=== PATIENT | female | born 1960 | race Caucasian/White ===

== ENCOUNTER 2024-08-04 22:11 | Inpatient (IN) | payer OTHER, SELFPAY ==
[2024-08-04 17:43] VITALS: BP 105/73
--- NOTE | 2024-08-04 17:43 | ED.GENMED ---
ED Provider Triage
<Val Bloom INSURANCE CLAIMS ASSISTANT - Last Filed: 08/04/24 17:51>
-
Patient seen by provider in Triage?: Seen in Triage
Attestation: A medical screening examination has been initiated by a qualified medical provider. Based on the assessment performed at this time, it has been determined that an emergent medical condition may exist and the patient has been informed
that further medical evaluation and possible additional diagnostic testing may be needed.
HPI: 64 yo female mid chest pain radiating under left breast to upper back and L shoulder at time. Intermittent until last night when it became constant and remains so. Pain now 8/10, stabbing, 'takes my breath away.' Has taken nothing for the pain.
Was nauseous and vomited once on way here. Denies SOB, abdominal pain. Denies diarrhea.
GENERAL: Alert , in no apparent distress
EYE: No visual abnormalities.
ENT: No visible abnormalities.
LUNGS: No acute respiratory distress
NEUROLOGICAL: Alert and oriented
SKIN: Skin intact. No visible changes.
MUSCULOSKELETAL: Moving extremities normally
PSYCH: Normal and appropriate interaction.
This is a medical evaluation conducted in person to initiate diagnostic evaluation and provide initial therapeutics. Please see further documentation by the treating clinician.
History of Present Illness
<Val Bloom INSURANCE CLAIMS ASSISTANT - Last Filed: 08/04/24 17:51>
General
Chief Complaint: Chest Pain
Time Seen by Provider: 08/04/24 18:37
<JORDYN Upton - Last Filed: 08/04/24 21:07>
General
Source: patient
Exam Limitations: none
History of Present Illness
History of Present Illness:
This is a 64 year old female that comes in with c/o chest pain. States that she had a fever last night and she just feels weak. State that about 1.5 weeks ago she had a little discomfort. Then last night it was worse. States that she had chills,
chest pain, some left flank pain, nausea, vomiting, headache. Denies any SOB, cough, diarrhea, dizziness, urinary burning .
Past History
<Val Bloom NP - Last Filed: 08/04/24 17:51>
Past History
ED Past Medical History: Other (Kidney stones, migraines)
ED Past Surgical History: None
Social History
Tobacco: Former smoker
Alcohol: Occasional
Family History
Family History: Negative Diabetes, Hypertension, Early CAD, Asthma or Cancer
<JORDYN Upton - Last Filed: 08/04/24 21:07>
Past History
ED Past Medical History: Other (Kidney stones, migraines, Tingling legs and arms. Pancreatitis); Negative Asthma, HTN, Hypercholesterolemia or NIDDM
ED Past Surgical History: (X 3, ), Gynecological (Hysterectomy) and Orthopedic (Cervical fusion)
Social History
Tobacco: Former smoker
Alcohol: None
Personal:
Living: with family
Review of Systems
<JORDYN Upton - Last Filed: 08/04/24 21:07>
Review of Systems
All Other Systems: ROS reviewed and negative except as documented in HPI and ROS
Constitutional: Reports fever and chills
EENT: Reports no symptoms
Respiratory: Denies cough or trouble breathing
Cardiac: Reports chest pain
ABD/GI: Reports abdominal pain, nausea and vomiting; Denies diarrhea
: Reports no symptoms; Denies dysuria, frequency or urgency
Musculoskeletal: Reports no symptoms
Skin: Reports no symptoms
Neurological: Reports headache; Denies dizzy
Psychiatric: Reports no symptoms
Phy Exam
<JORDYN Upton - Last Filed: 08/04/24 21:07>
General Physical Exam
General Presentation: mild distress
General age: appears stated age
General Skin: warm and dry
General Habitus: normal
General Mental: alert
General Hydration: appears well hydrated
ENT Exam
ENT Exam: TM's normal, pharynx normal and neck supple
Eye Exam
Eye Exam: EOMI
Cardiovascular Exam
Cardiovascular Exam: regular rate/rhythm, no edema, no murmur and normal peripheral pulses
Pulmonary Exam
Pulmonary Exam: lungs clear, no respiratory distress, no rales, chest non tender, no crackles, no rhonchi, no wheezing and no cough
Gastrointestinal Exam
Gastrointestinal Exam: normal bowel sounds, soft, no organomegaly, no pulsatile mass, non distended and tender (Upper abd tenderness with palpation)
Musculoskeletal Exam
Musculoskeletal Exam: full ROM and no edema
Skin Exam
Skin Exam: normal color, warm/dry, no rash and no petechia
Psychiatric Exam
Psychiatric Exam: normal mood/affect
Scores
<JORDYN Upton - Last Filed: 08/04/24 21:07>
Heart Score for Chest Pain Patients
STEMI patient?: No
History: Slightly or Non-Suspicious
ECG: Normal
Age: >45 - <65 years
Risk Factors: No Risk Factors
Troponin: </= Normal Limit
Heart Score for Chest Pain Patients: 1
Heart Score Risk: 2.5% MACE over next 6 weeks
Course
<Val Bloom NP - Last Filed: 08/04/24 17:51>
Orders/Labs/Results
Orders:
Orders
08/04/24 17:35
Electrocardiogram (*1) Urgent
Reason for Study: Chest Pain
EKG- Treatment ONCE
08/04/24 17:47
Electrocardiogram (*1) Urgent
Reason for Study: Chest Pain
EKG- Treatment ONCE
08/04/24 17:50
CT Abd/Pel (IV only)-DH only Urgent
Comment:
Reason For Exam: mid epigastric pain LUQ/L upper back hx pancreatit
08/04/24 17:53
Complete Blood Count/With Diff Urgent
Comprehensive Metabolic Panel Urgent
Lipase Urgent
Troponin I Urgent
08/04/24 19:08
Pantoprazole [Protonix IV] 40 mg IV NOW STA
08/04/24 19:09
CR Chest - 2 Views Urgent
Comment:
Reason For Exam: Chest pain
08/04/24 19:11
Ketorolac [Toradol] 30 mg IV NOW STA
US Abdomen Complete/Upper Urgent
Reason For Exam: Upper abd pain
08/04/24 19:17
0.9% Sodium Chloride 1000 ml [Nss] 1,000 ml IV BOLUS
08/04/24 20:40
D-Dimer Urgent
08/04/24 20:43
Urinalysis Reflex To Culture Urgent
Date Specimen was Collected: 08/04/24
Time Specimen was Collected: 20:41
Urine Microscopic Reflex Cult Urgent
Urine Culture Urgent
KATIE Source: U
Specimen Description:
Date Specimen was Collected: 08/04/24
Time Specimen was Collected: 20:41
Abnormal Lab Results
08/04/24 08/04/24 08/04/24
17:53 20:40 20:43
Absolute Neuts (auto) 7.0 H 10^3/uL
(1.4-6.5)
Absolute Monos (auto) 0.8 H 10^3/uL
(0.1-0.6)
D-Dimer 0.52 H ug/mlFEU
(0.00-0.50)
Glucose 173 H mg/dl
(70-99)
Urine Ketones 2+ A
(Negative)
Leukocyte Esterase Rfl 1+ A
(Negative)
08/04/24 17:53
08/04/24 17:53
Vital Signs
Initial and Last Documented VS:
Initial Vital Signs
Temp Pulse Resp BP Pulse Ox
99.8 F 115 16 105/73 95
08/04/24 17:43 08/04/24 17:43 08/04/24 17:43 08/04/24 17:43 08/04/24 17:43
Last Documented Vital Signs
Temp Pulse Resp BP Pulse Ox
99.8 F 87 17 113/65 99
08/04/24 17:43 08/04/24 20:30 08/04/24 20:25 08/04/24 20:25 08/04/24 20:30
<JORDYN Upton - Last Filed: 08/04/24 21:07>
Orders/Labs/Results
Orders:
Orders
08/04/24 17:35
Electrocardiogram (*1) Urgent
Reason for Study: Chest Pain
EKG- Treatment ONCE
08/04/24 17:47
Electrocardiogram (*1) Urgent
Reason for Study: Chest Pain
EKG- Treatment ONCE
08/04/24 17:50
CT Abd/Pel (IV only)-[facility] only Urgent
Comment:
Reason For Exam: mid epigastric pain LUQ/L upper back hx pancreatit
08/04/24 17:53
Complete Blood Count/With Diff Urgent
Comprehensive Metabolic Panel Urgent
Lipase Urgent
Troponin I Urgent
08/04/24 19:08
Pantoprazole [Protonix IV] 40 mg IV NOW STA
08/04/24 19:09
CR Chest - 2 Views Urgent
Comment:
Reason For Exam: Chest pain
08/04/24 19:11
Ketorolac [Toradol] 30 mg IV NOW STA
US Abdomen Complete/Upper Urgent
Reason For Exam: Upper abd pain
08/04/24 19:17
0.9% Sodium Chloride 1000 ml [Nss] 1,000 ml IV BOLUS
08/04/24 20:40
D-Dimer Urgent
08/04/24 20:43
Urinalysis Reflex To Culture Urgent
Date Specimen was Collected: 08/04/24
Time Specimen was Collected: 20:41
Urine Microscopic Reflex Cult Urgent
Urine Culture Urgent
KATIE Source: U
Specimen Description:
Date Specimen was Collected: 08/04/24
Time Specimen was Collected: 20:41
Abnormal Lab Results
08/04/24 08/04/24 08/04/24
17:53 20:40 20:43
Absolute Neuts (auto) 7.0 H 10^3/uL
(1.4-6.5)
Absolute Monos (auto) 0.8 H 10^3/uL
(0.1-0.6)
D-Dimer 0.52 H ug/mlFEU
(0.00-0.50)
Glucose 173 H mg/dl
(70-99)
Urine Ketones 2+ A
(Negative)
Leukocyte Esterase Rfl 1+ A
(Negative)
08/04/24 17:53
08/04/24 17:53
Hyperglycemia,, Troponin <0.012, Lipase normal at 93, D-dimer 0.52( Will adjust for age, as patient is not tachycardic or hypoxic)
Vital Signs
Initial and Last Documented VS:
Initial Vital Signs
Temp Pulse Resp BP Pulse Ox
99.8 F 115 16 105/73 95
08/04/24 17:43 08/04/24 17:43 08/04/24 17:43 08/04/24 17:43 08/04/24 17:43
Last Documented Vital Signs
Temp Pulse Resp BP Pulse Ox
99.8 F 87 17 113/65 99
08/04/24 17:43 08/04/24 20:30 08/04/24 20:25 08/04/24 20:25 08/04/24 20:30
<JORDYN Upton - Last Filed: 08/04/24 21:07>
MDM/Problems Addressed
Differential Diagnosis Includes:
Costochondritis, PNA, Gallbladder disease, Gastritis
MDM/Problems Addressed:
This is a 64 year old female that come sin with c/o chest pain. States that she had a little about 1.5 weeks ago and then last night the chest pain was terrible. States that she feels she had a fever with chills, abd pain, nausea, vomiting.
Will check labs, US upper abd, CT scan and given IV fluids with pain medication.
Back into see patient. Reviewed labs and US and CT findings. Patient remains very uncomfortable. Will admit. Hospitalist notified
Chronic conditions affecting care:
NA
Acute Exacerbation and/or Progression of Chronic Illness:
NA
<JORDYN Upton - Last Filed: 08/04/24 21:07>
*Radiology
Radiology exam reviewed: preliminary read by ED provider (Chest-Negative for active disease), radiology read reviewed (US limited-Slightly contracted gallbladder. No gallstones. No bile duct dilation. Poorly visualized pancreas. left renal cyst.
CT-mild pancreatitis of the pancreatic tail. Incidental findings include left paramidline lower back probable subaceous cyst, having increased slightly in size. Small ) and other (CT cont- small hepatic cyst and left renal cyst. Minor diverticulosis
without acute diverticulitis. )
*Pulse Oximetry
Patient hypoxic: no
*EKG
Interpreted by ED Provider?: Yes
Heart Rate: 107
Rate: tachycardiac
Rhythm: sinus tachycardia
[place]: normal axis
Interval: normal interval
QRS Pattern: normal QRS
Ischemia: no ischemia
*Dish Technician Interpretation
Rate: normal
Heart Rate: 91
Rhythm: sinus
*Critical Care Note
Total Time (30-74mins, 75-104mins- exclusive of procedures): Not Applicable
ED Attending Note
<Val Bloom NP - Last Filed: 08/04/24 17:51>
-
Portions of this chart may have been created with voice recognition software.� Occasional wrong word or��sound alike� substitutions may have occurred due to the inherent limitations of voice recognition software.
Discharge Plan
Departure
Patient Disposition: Admit
Date of Disposition: 08/04/24
Time of Disposition: 21:05
Admit to: Med/Surg
Presentation/result/management discussed w/ accepting MD/DO: Hospitalist
Patient with high blood pressure during this ER visit?: No
Condition: Good
Covid-19: Not Applicable
Discharge Problem:
Abdominal pain, Pancreatitis, acute
Prescriptions:
No Action
hngrjejnjb-jwfglqkpvherh-dpjy 1 TAB tablet
1 tab PO Q4HPRN PRN (Reason: pain)
trazodone 100 MG tablet
100 mg PO HS
gabapentin 300 MG capsule
300 mg PO TID
zolpidem 5 MG tablet
6 mg PO HSPRN PRN (Reason: sleep)
amoxicillin-pot clavulanate 875-125 mg tablet
1 tab PO BID Qty: 20 0RF
oxycodone 5 mg tablet
5 mg PO Q4H PRN (Reason: pain) Qty: 10 0RF
gabapentin 300 mg capsule
300 mg PO TID Qty: 20 0RF
Referrals:
Ayana Dwyer CRNP [Family Provider] -
Interventions
Interventions:
*Risk Screen - Suicide Last Done: 08/04/24 17:45
*General Assessment Last Done: 08/04/24 19:03
*Neglect/Abuse Screening Last Done: 08/04/24 17:45
*ED COVID-19 Vaccine History Last Done: 08/04/24 19:03
ED- Cardiac Assessment Last Done: 08/04/24 19:03
Discharge Date and Time
Print Language: AZERI
[2024-08-04 18:00] LABS: % Basophils 0.3 % (0-2); % Eosinophils 1.2 % (0-6); % Immature Granulocytes 0.3 % (0-0.5); % Lymphocytes 22.8 % (20.5-51.1); % Neutrophils 67.4 % (42.2-75.2); Absolute Eosinophils 0.1 10^3/uL (0-0.7); Absolute Lymphocytes 2.4 10^3/uL (1.2-3.4); Absolute Monocytes 0.8 10^3/uL (0.1-0.6); Hematocrit 39.6 % (37.0-47.0); Hemoglobin 13.3 g/dL (12.0-16.0); Mean Corp Hgb Conc. 33.6 g/dL (33.0-37.0); Mean Corpuscular Hgb 29.7 pg (27.0-31.0); Mean Corpuscular Volume 88.4 fL (81.0-99.0); Mean Platelet Volume 7.9 fL (7.4-10.4); Nucleated Red Blood Cells % 0 %; Platelet Count 280 10^3/uL (130-400); Red Blood Cell Count 4.48 10^6/uL (4.20-5.40); Red Cell Dist. Width 12.6 % (11.5-14.5); White Blood Cell Count 10.3 10^3/uL (4.8-10.8)
[2024-08-04 18:12] LABS: ALT (SGPT) 14 U/L (0-35); AST (SGOT) 19 U/L (14-36); Albumin 4.4 g/dl (3.5-5.0); Alkaline Phosphatase 66 U/L (38-126); Blood Urea Nitrogen 15 mg/dl (7-17); Calcium 9.3 mg/dl (8.4-10.2); Carbon Dioxide 23 mmol/L (22-30); Chloride 104 mmol/L (98-107); Glucose 173 mg/dl (70-99); Lipase 93 U/L (23-300); Potassium 3.5 mmol/L (3.5-5.1); Sodium 138 mmol/L (135-145); Total Bilirubin 1.2 mg/dl (0.2-1.3); Total Protein 6.9 g/dl (6.3-8.2); eGFR > 60.00
[2024-08-04 18:23] LABS: Troponin I < 0.012 ng/ml
[2024-08-04 18:51] VITALS: BP 135/71
[2024-08-04 19:00] VITALS: BP 113/69
[2024-08-04] MEDS: PROTONIX IV 40 MG IV (20:22)
[2024-08-04] MEDS: NSS 1000 IV (20:22)
[2024-08-04] MEDS: TORADOL 30 MG IV (20:22)
[2024-08-04 20:25] VITALS: BP 113/65
[2024-08-04 20:52] LABS: Urine Albumin Trace (Neg - Trace); Urine Bilirubin Negative (Negative); Urine Character Clear (Clear); Urine Color Amber; Urine Glucose Negative (Negative); Urine Ketone 2+ (Negative); Urine Leukocyte 1+ (Negative); Urine Nitrite Negative (Negative); Urine Occult Blood Negative (Negative); Urine Specific Gravity 1.005 (<1.030); Urine Urobilinogen 1+ (Neg - 1+); Urine pH 6.5 (5.0-9.0)
[2024-08-04 20:57] LABS: D-Dimer 0.52 ug/mlFEU (0.00-0.50)
[2024-08-04 21:00] VITALS: BP 117/62
[2024-08-04 21:12] LABS: Urine Bacteria Few (Negative); Urine Red Blood Cell 0-2 /HPF (0-2); Urine Squamous Cell >30 /LPF (Few); Urine White Cell 16-20 /HPF (0-5)
[2024-08-04] MEDS: DILAUDID 1 MG IV (21:41)
--- NOTE | 2024-08-04 21:51 | HPS.HSE ---
Family Physician
-
Family Physician: Ayana Dwyer
Chief Complaint
-
mid chest pain radiating under left breast to upper back and L shoulde
History of Present Illness
HPI
64F on Semaglutide ( Wegovy) HX Kidney stones seen at ER:
- acute intermittent mid chest pain radiating under left breast to upper back and L shoulder at time.
- Intermittent until last night then it became constant and remains so.
- Pain now 8/, stabbing, 'takes my breath away.'
- Was nauseous and vomited once on way here.
- on Wegovy for last 2.5 yrs
- HX Pancreatitis 6 yrs ago
ROS
Denies SOB, abdominal pain. Denies diarrhea.
Medical History
Past Medical History
Past Medical History: Reports Other (kidney stone )
Additional Past Medical History:
HX pancreatitis 6 yrs ago
Past Surgical History: Reports None
Social History
Tobacco: Former Smoker
Alcohol: Occasional
Family History
Family History: Not pertinent
Allergies / Home Medications
Allergies reflects when Allergies were last updated in [employer].
Home Medications with original date entered in [employer]
Allergy/Medication List:
Allergies
Allergy/AdvReac Type Severity Reaction Status Date / Time
No Known Allergies Allergy Verified 06/26/22 18:43
Home Medications
trazodone 100 mg tablet 200 mg PO HS 10/10/12
Medical Marijuana 1 gummy PO HS 08/04/24
ondansetron 4 mg disintegrating tablet 4 mg PO Q8HPRN PRN nausea 08/04/24
polyethylene glycol 3350 17 gram oral powder packet (Miralax) 17 g PO DAILYPRN PRN constipation 08/04/24
rosuvastatin 10 mg tablet 10 mg PO DAILY 08/04/24
semaglutide (weight loss) 2.4 mg/0.75 mL subcutaneous pen injector (Wegovy) 2.4 mg SC MO 08/04/24
Review of Systems
-
Constitutional: Reports No Symptoms
EENT: Reports No Symptoms
Respiratory: Reports No Symptoms
Cardiac: Reports No Symptoms
Abdomen/GI: Reports See HPI, Abdominal Pain and Nausea
: Reports No Symptoms
Musculoskeletal: Reports No Symptoms
Skin: Reports No Symptoms
Neurological: Reports No Symptoms
Endocrine: Reports No Symptoms
Hematologic/Lymphatic: Reports No Symptoms
Psych: Reports No Symptoms
Physical Exam
Vital Signs
Vital Signs
Temp Pulse Resp BP Pulse Ox
99.8 F 85 16 117/62 96
08/04/24 17:43 08/04/24 21:30 08/04/24 21:15 08/04/24 21:00 08/04/24 21:30
Physical Exam
General: Well Developed, Well Nourished and No Apparent Distress
HEENT: NormoCephalic, Moist mucous membranes and Atraumatic
Respiratory: Clear
Cardiac: S1/S2 and Regular Rhythm; No Murmur or Rub
Rectal: Deferred by Provider
Musculoskeletal: No Clubbing, No Cyanosis and No Edema
Skin: No Rash
Neuro: Awake, Alert, AO x 3 and Nonfocal/grossly intact
Laboratory Results
-
08/04/24 17:53
08/04/24 17:53
Laboratory Results
Total Bilirubin 1.2 mg/dl (0.2-1.3) 08/04/24 17:53
AST 19 U/L (14-36) 08/04/24 17:53
ALT 14 U/L (0-35) 08/04/24 17:53
Alkaline Phosphatase 66 U/L (38-126) 08/04/24 17:53
Troponin I < 0.012 ng/ml 08/04/24 17:53
Lipase 93 U/L (23-300) 08/04/24 17:53
Data Reviewed
-
CT Scan: Report Reviewed by me
Lab Data: Labs Reviewed by me
Impression/Plan
-
Data
Unremarkable CBC
DD 0.52
Lipase 93 , Nl LFTs
NEG TPNI
CXR: no acute process
EKG
SINUS TACHYCARDIA
NONSPECIFIC T WAVE ABNORMALITY
ABNORMAL ECG
NO PREVIOUS ECGS AVAILABLE
US abdomen
Slightly contracted gallbladder. No gallstones. No bile duct dilatation. Poorly visualized pancreas. Left renal cyst.
CT AP with IV contrast
Mild pancreatitis of the pancreatic tail.
Mild soft tissue stranding is associated with the pancreatic tail, consistent with acute pancreatitis.
No prior hospitalist admission:
ASSESSMENT & PLAN
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
Nl Lipase, nl LFTs
Unremarkable US ; No GS. No CBD dilatation
On Wegovy for last 2.5 yrs
HX Pancreatitis 6 yrs ago
Denied ETOH use disorder
- stop Wegovy
- NPO
- LR IVF @ 120/H
- IV Dilaudid PRN
- IV anti emetics PRN
- GI consult
Elevated D Dimer unclear clinical significance: any association with acute pancreatitis ?
HLD
- cont PRESENTATION DESIGNER Statin
Kidney stones
DVT Px: LMWH
Full code
IP MS
[2024-08-04 22:00] VITALS: BP 100/55
[2024-08-05] MEDS: DILAUDID 0.5 MG IV ×4 (00:19→22:22)
[2024-08-05] MEDS: DESYREL 200 MG PO ×2 (01:16→22:21)
[2024-08-05] MEDS: LR 1000 IV (01:17)
[2024-08-05] MEDS: ZOFRAN 4 MG IV (04:17)
[2024-08-05 04:22] VITALS: BP 124/57
[2024-08-05 04:58] LABS: Hematocrit 36.4 % (37.0-47.0); Hemoglobin 11.9 g/dL (12.0-16.0); Mean Corp Hgb Conc. 32.7 g/dL (33.0-37.0); Mean Corpuscular Hgb 29.6 pg (27.0-31.0); Mean Corpuscular Volume 90.5 fL (81.0-99.0); Mean Platelet Volume 8.7 fL (7.4-10.4); Platelet Count 272 10^3/uL (130-400); Red Blood Cell Count 4.02 10^6/uL (4.20-5.40); Red Cell Dist. Width 12.7 % (11.5-14.5); White Blood Cell Count 11.5 10^3/uL (4.8-10.8)
[2024-08-05 05:00] VITALS: BP 89/43
[2024-08-05 05:25] LABS: Blood Urea Nitrogen 17 mg/dl (7-17); Calcium 8.7 mg/dl (8.4-10.2); Carbon Dioxide 23 mmol/L (22-30); Chloride 106 mmol/L (98-107); Glucose 77 mg/dl (70-99); Magnesium 1.9 mg/dl (1.6-2.3); Sodium 142 mmol/L (135-145); eGFR > 60.00
[2024-08-05 06:00] VITALS: BP 103/63
--- NOTE | 2024-08-05 06:58 | CON.GI ---
Addendum entered and electronically signed by Jason Andres MD 08/05/24 10:00:
I saw and examined the patient.
The CAD CAM PROGRAMMER or PA's note was reviewed and I agree with the note.
Comment: 64yo female presents with abd pain, n/v. Pain is located in upper epigastric area/chest. CT abd shows mild inflammatory stranding in pancreatic tail. LFTs, lipase normal. She had attack of pancreatitis at [facility] 6 yrs ago, unclear
etiology. She quit smoking after that. No further attacks until now with similar symptoms. Denies EtOH. US negative for gallstones. She has been on Wegovy for last 2 years, but was not on it at time of last attack. Denies FH pancreatitis or
pancreatic CA
REC:
Mild stranding seen on CT
IVF, ok for clears
If improves, get MRI/MRCP as outpt for f/u
If no improvement, check MRI/MRCP as inpt
Original Note:
Consultation
-
Date/Time Consultation Requested: 08/05/24 0030
Date/Time Consultation Performed: 08/05/24 0910
Requesting Provider: Mayi Stokes PA-C
Performing Provider: JORDYN Marquis, Jason Andres MD
Reason for Consultation: pancreatitis
Medical History
Chief Complaint / HPI
Chief Complaint: chest pain
History of Present Illness:
Pt is a 64yo with hx prior pancreatitis, wt loss with use of Wegovy last 2 1/2 years, renal stones , prior appe, GERTRUDE, lap for endometriosis,cervical fusion, chronic back pain with onset of chest pain with radiation to back and shoulder with nausea
and vomiting. On admission she is noted with WBC 11,500 with glucose 173 and normal LFT's and lipase and normal troponin Pt did complete US with slightly contract GB no stone or duct dilatation. Limited pancreas. CT with IV contrast with mild
pancreatitis in pancreatic tail. Also noted sebaceous cysts, hepatic, and renal cysts along with diverticulosis. In recall with patient hx pancreatitis 6 years ago. She denies ETOH use and did not recall gallbladder issues with prior episode. She
was on increased NSAID's and tobacco use which she stopped after that admission with treatment at [place]. She admits to some constipation but otherwise denies dysphagia, GERD, diarrhea, rectal bleeding or change in stool/urine color. She denies
any recent change in Wegovy dosing.
Past Medical History
Past Medical History: Other (kidney stones, pancreaitits 6 years ago, migraines)
Past Surgical History: Appendectomy, Gynecological (GERTRUDE, lap for endometriosis) and Orthopedic (cervica fusion)
Social History
Tobacco: Former Smoker
Alcohol: None
Drug: Marijuana
Personal:
Living: With Family
Employment: Retired
Family History
Family History: Other (no family hx colon Ca or polyps, pancreatitis or pancreatic CA)
Allergies / Home Medications
Allergy/AdvReac Type Severity Reaction Status Date / Time
No Known Allergies Allergy Verified 06/26/22 18:43
�Medication �Instructions �Recorded
trazodone 100 mg tablet 200 mg PO HS 10/10/12
Medical Marijuana 1 gummy PO HS 08/04/24
ondansetron 4 mg disintegrating 4 mg PO Q8HPRN PRN nausea 08/04/24
tablet
polyethylene glycol 3350 17 gram 17 g PO DAILYPRN PRN constipation 08/04/24
oral powder packet (Miralax)
rosuvastatin 10 mg tablet 10 mg PO DAILY 08/04/24
semaglutide (weight loss) 2.4 2.4 mg SC MO 08/04/24
mg/0.75 mL subcutaneous pen
injector (Wegovy)
Review of Systems
-
History Source: Patient
Constitutional: Reports Weight Loss (42 lbs in last 2 1/2 years )
EENT: Reports No Symptoms
Respiratory: Reports No Symptoms
Cardiac: Reports Chest Pain
Abdomen/GI: Reports Nausea
: Reports No Symptoms
Musculoskeletal: Reports Other (chronic back pain)
Skin: Reports No Symptoms
Neurological: Reports No Symptoms
Endocrine: Reports No Symptoms
Hematologic/Lymphatic: Reports No Symptoms
Vital Signs
Temp Pulse Resp BP Pulse Ox
99.8 F 90 17 100/55 92
08/04/24 17:43 08/04/24 22:00 08/04/24 22:00 08/04/24 22:00 08/04/24 21:45
Physical Exam
Exam
General: Well Developed, Well Nourished and No Apparent Distress
HEENT: Normocephalic and Anicteric
Respiratory: Clear
Cardiac: Regular Rhythm
GI: Soft, Non Distended and Tender (minimal epigastric points more to chest )
Musculoskeletal: No Clubbing and No Cyanosis
Skin: Warm and Dry
Neuro: Awake, Alert and AO x 3
Psych: Calm
Results
WBC 11.5 10^3/uL (4.8-10.8) H 08/05/24 04:22
Hgb 11.9 g/dL (12.0-16.0) L 08/05/24 04:22
Hct 36.4 % (37.0-47.0) L 08/05/24 04:22
MCV 90.5 fL (81.0-99.0) 08/05/24 04:22
Plt Count 272 10^3/uL (130-400) 08/05/24 04:22
Absolute Neuts (auto) 7.0 10^3/uL (1.4-6.5) H 08/04/24 17:53
Sodium 142 mmol/L (135-145) 08/05/24 04:22
Potassium 4.0 mmol/L (3.5-5.1) 08/05/24 04:22
Chloride 106 mmol/L (98-107) 08/05/24 04:22
Carbon Dioxide 23 mmol/L (22-30) 08/05/24 04:22
BUN 17 mg/dl (7-17) 08/05/24 04:22
Creatinine 0.6 mg/dL (0.6-1.0) 08/05/24 04:22
Calcium 8.7 mg/dl (8.4-10.2) 08/05/24 04:22
Total Bilirubin 1.2 mg/dl (0.2-1.3) 08/04/24 17:53
AST 19 U/L (14-36) 08/04/24 17:53
ALT 14 U/L (0-35) 08/04/24 17:53
Alkaline Phosphatase 66 U/L (38-126) 08/04/24 17:53
Lipase 93 U/L (23-300) 08/04/24 17:53
Diagnostic Image Results:
08/04/24 US abdomen
Slightly contracted gallbladder. No gallstones. No bile duct dilatation. Poorly visualized pancreas. Left renal cyst.
08/04 CT A/p with IV contrast
Mild pancreatitis of the pancreatic tail.
Incidental findings include left paramidline lower back probable sebaceous cyst, having increased slightly in size. Small hepatic cysts and left renal cyst. Minor diverticulosis without acute diverticulitis.
Prior GI Procedures:
Colonoscopy: recently done 6 months ago recalls as normal
Assessment / Plan
-
Pt is a 64yo with hx prior pancreatitis, wt loss with use of Wegovy last 2 1/2 years, renal stones , prior appe, GERTRUDE, lap for endometriosis,cervical fusion, chronic back pain with onset of chest pain with radiation to back and shoulder with nausea
and vomiting. On admission she is noted with WBC 11,500 with glucose 173 and normal LFT's and lipase and normal troponin Pt did complete US with slightly contract GB no stone or duct dilatation. Limited pancreas. CT with IV contrast with mild
pancreatitis in pancreatic tail. Also noted sebaceous cysts, hepatic, and renal cysts along with diverticulosis. In recall with patient hx pancreatitis 6 years ago. She denies ETOH use and did not recall gallbladder issues with prior episode. She
was on increased NSAID's and tobacco use which she stopped after that admission with treatment at [place]. She admits to some constipation but otherwise denies dysphagia, GERD, diarrhea, rectal bleeding or change in stool/urine color. She denies
any recent change in Wegovy dosing.
-chest pain on admission with nausea/vomiting
-CT with mild pancreatitis in pancreatic tail
-mild leukocytosis
-prior hx pancreatitis 6 years ago
-wt loss with use of Wegovey last 2 1/2 years
other med problems:
-GERTRUDE
-lap for endometriosis
-GERTRUDE
-renal stones
-hepatic/renal cyst on CT]
-diverticulosis
-cervical fusion/chronic back pain
-former tobacco use and current occasional marijuana use
PLAN:
etiology of chest pain related to mild pancreatitis noted on CT though LFT's and lipase normal vs cardiac vs other
s/p fluid bolus given in ER cont IVF at 125m/hr
trop neg so far
for echo
NPO ok to trial clears
pain control per hospitalist
trend labs -- LFT's and lipase remain normal today
if not improving consider MRI/MRCP vs consider OP MRI follow up if improved
Wegovey side effect can cause pancreatitis/GB issues but has been on same dose for last 2 1/2 years
cont NSAID and tobacco avoidance
-
-
Thank you for consultation and allowing me to participate in the patient's care. Please call the hydraulic controls technician GI physician during the after hours with any questions or concerns.
[2024-08-05 07:00] VITALS: BP 140/74
[2024-08-05] MEDS: CRESTOR PO (07:38)
[2024-08-05 07:47] LABS: ALT (SGPT) 12 U/L (0-35); AST (SGOT) 18 U/L (14-36); Albumin 3.6 g/dl (3.5-5.0); Alkaline Phosphatase 61 U/L (38-126); Direct Bilirubin 0.2 mg/dl (0.0-0.4); Lipase 72 U/L (23-300); Total Bilirubin 0.9 mg/dl (0.2-1.3); Total Protein 5.9 g/dl (6.3-8.2)
[2024-08-05] MEDS: REGLAN 10 MG IV ×3 (07:57→20:19)
[2024-08-05 08:09] LABS: Troponin I < 0.012 ng/ml
--- NOTE | 2024-08-05 09:01 | W.PN.HOSP.TC ---
Addendum entered and electronically signed by Mendez Palmer MD 08/05/24 09:04:
#Positive UA
Reasonable to treat as simple UTI pending Ucx - Ceftriaxone
Original Note:
Today's Communication/Plan
-
See PN
Assessment / Plan
Assessment / Plan
64yo M with PMHx of pancreatitis came with few days of epigastric pain and later vomiting, found signs of mild acute pancreatitis. Patient has a pain similar to her previous pancreatitis flare, however rather atypical radiating to substernal area.
Lipase is normal
A/P:
#Acute pancreatitis
#Hepatic cysts
thought to be 2/2 romy Gimenez er patient without dose change for past 2 years
Hold Wygovty
IVF
Advance diet as tolerated
Reglan (Zofran was not helpful)
No gallstones on US
check triglicerides
No hypercalcemia seen
GI consult
Start PPI since pain epigastric
#Non-cardiac chest pain
No ST elevation on EKG
trops WNL
Echo
#Insomnia
cont home meds
#Diverticulosis without diverticulitis
high fiber diet
#DJD
tylenol
DVT ppx lovenox
Full code
I have spent at least 58min reviewing chart, test results, communication with consultants and direct paitient care
Anticipated Discharge: 24 - 48 hours
Subjective/Interval History
-
Date of Service: August 05, 2024
Objective Data
-
Labs:
Laboratory Results
08/05/24
04:22
WBC 11.5 H
Hgb 11.9 L
Hct 36.4 L
Plt Count 272
Sodium 142
Potassium 4.0
Chloride 106
Carbon Dioxide 23
BUN 17
Creatinine 0.6
Glucose 77
Calcium 8.7
Total Bilirubin 0.9
AST 18
ALT 12
Alkaline Phosphatase 61
Vital Signs:
Vital Signs
Temp Pulse Resp BP Pulse Ox
98.3 F 87 18 140/74 98
08/05/24 07:00 08/05/24 07:00 08/05/24 07:00 08/05/24 07:00 08/05/24 04:00
Review of Systems
-
History Source: Patient
All other systems: Reviewed and negative
Abdomen/GI: Reports Abdominal Pain, Nausea and Vomiting
Physical Exam
-
General: No Apparent Distress
HEENT: Normocephalic
Respiratory: Clear to Auscultation
GI: Soft, Nontender and Nondistended
Musculoskeletal: No Clubbing, No Cyanosis and No Edema
Skin: Warm
Neuro: Awake, Alert, Oriented and AO x 3
Psych: Calm
[2024-08-05] MEDS: LR IV (09:09)
[2024-08-05 09:30] LABS: HDL Cholesterol 60 mg/dl; LDL Cholesterol, Calculated 106 mg/dl; Total Cholesterol 180 mg/dl (50-199); Triglyceride 73 mg/dl (10-149); Very Low Density Lipoprotein 14 mg/dl (0-30)
[2024-08-05] MEDS: ROCEPHIN 1000 MG IV (09:37)
[2024-08-05] MEDS: NSS 1000 IV ×2 (09:37→18:19)
[2024-08-05] MEDS: NSS (PRESERVATIVE FREE) 10 ML IV ×2 (09:38→20:20)
[2024-08-05] MEDS: STERILE WATER FOR INJECTION 10 ML IV (09:38)
[2024-08-05] MEDS: PROTONIX IV 40 MG IV ×2 (09:38→20:20)
--- NOTE | 2024-08-05 09:59 | PTCARENOTE ---
pt aaox3. states having nausea and vomiting bile. meds given as ordered ivf running as ordered.
[2024-08-05] MEDS: TYLENOL 650 MG PO (13:18)
[2024-08-05 15:42] VITALS: BP 113/62; BMI 31.7
[2024-08-05 23:00] VITALS: BP 123/72
--- NOTE | 2024-08-06 04:14 | DOWNTIME ---
There was a [employer] Downtime on 08/06/2024 from 0100 to 08/06/2024 at 0350. Downtime documentation of patient's care, including medication administrations, has been reconciled in the electronic record per guidelines. Refer to the
patient's paper chart under the miscellaneous tab to see printed paper medication records and downtime forms.
[2024-08-06] MEDS: NSS 1000 IV ×3 (04:18→18:45)
[2024-08-06 07:35] LABS: % Basophils 0.3 % (0-2); % Eosinophils 2.7 % (0-6); % Immature Granulocytes 0.4 % (0-0.5); % Lymphocytes 34.4 % (20.5-51.1); % Monocytes 8.2 % (1.7-9.3); Absolute Eosinophils 0.2 10^3/uL (0-0.7); Absolute Lymphocytes 2.5 10^3/uL (1.2-3.4); Absolute Monocytes 0.6 10^3/uL (0.1-0.6); Hematocrit 32.2 % (37.0-47.0); Hemoglobin 10.9 g/dL (12.0-16.0); Mean Corp Hgb Conc. 33.9 g/dL (33.0-37.0); Mean Corpuscular Hgb 30.2 pg (27.0-31.0); Mean Corpuscular Volume 89.2 fL (81.0-99.0); Mean Platelet Volume 8.6 fL (7.4-10.4); Nucleated Red Blood Cells % 0 %; Platelet Count 253 10^3/uL (130-400); Red Blood Cell Count 3.61 10^6/uL (4.20-5.40); Red Cell Dist. Width 12.4 % (11.5-14.5); White Blood Cell Count 7.4 10^3/uL (4.8-10.8)
[2024-08-06] MEDS: PROTONIX IV 40 MG IV ×2 (08:07→20:12)
[2024-08-06] MEDS: NSS (PRESERVATIVE FREE) 10 ML IV ×2 (08:07→20:12)
[2024-08-06] MEDS: CRESTOR 10 MG PO (08:07)
[2024-08-06 08:08] VITALS: BP 132/75
[2024-08-06] MEDS: REGLAN 10 MG IV ×2 (08:08→18:40)
[2024-08-06] MEDS: DILAUDID 0.5 MG IV ×3 (08:08→22:21)
[2024-08-06] MEDS: FLUSH (NSS) 1 FLUSH IV ×3 (08:09→14:49)
[2024-08-06 09:46] LABS: ALT (SGPT) 11 U/L (0-35); AST (SGOT) 16 U/L (14-36); Alkaline Phosphatase 57 U/L (38-126); Blood Urea Nitrogen 11 mg/dl (7-17); Calcium 8.1 mg/dl (8.4-10.2); Carbon Dioxide 21 mmol/L (22-30); Chloride 108 mmol/L (98-107); Estimated Creatinine Clearance 93 ml/min; Glucose 61 mg/dl (70-99); Potassium 3.7 mmol/L (3.5-5.1); Sodium 138 mmol/L (135-145); Total Bilirubin 0.6 mg/dl (0.2-1.3); Total Protein 5.2 g/dl (6.3-8.2); eGFR > 60.00
[2024-08-06] MEDS: ROCEPHIN 1000 MG IV (10:30)
[2024-08-06] MEDS: STERILE WATER FOR INJECTION 10 ML IV (10:30)
--- NOTE | 2024-08-06 12:10 | W.PN.HOSP.TC ---
Today's Communication/Plan
-
MRCP
cont IVF and pain meds
follow LFT
Assessment / Plan
Assessment / Plan
64yo M with PMHx of pancreatitis came with few days of epigastric pain and later vomiting, found signs of mild acute pancreatitis. Patient has a pain similar to her previous pancreatitis flare, however rather atypical radiating to substernal area.
Lipase is normal
A/P:
#Acute pancreatitis
#Hepatic cysts
thought to be 2/2 Haleigovyromy er patient without dose change for past 2 years
Hold Wygovy
IVF
Advance diet as tolerated
Reglan (Zofran was not helpful)
No gallstones on US
triglycerides 73
No hypercalcemia seen
GI consult: IVF and advance diet as tolerated, MRCP if no improvement - will order
Start PPI since pain epigastric
#Non-cardiac chest pain
No ST elevation on EKG
trops WNL
Echo: EF 65% without valvular dysfunction
#Insomnia
cont home meds
#Diverticulosis without diverticulitis
high fiber diet
#DJD
tylenol
DVT ppx lovenox
Full code
I have spent at least 38min reviewing chart, test results, communication with consultants and direct paitient care
Anticipated Discharge: > 48 hours
Subjective/Interval History
-
Date of Service: August 06, 2024
Objective Data
-
Labs:
Laboratory Results
08/06/24
06:33
WBC 7.4
Hgb 10.9 L
Hct 32.2 L
Plt Count 253
Sodium 138
Potassium 3.7
Chloride 108 H
Carbon Dioxide 21 L
BUN 11
Creatinine 0.5 L
Glucose 61 L
Calcium 8.1 L
Total Bilirubin 0.6
AST 16
ALT 11
Alkaline Phosphatase 57
Vital Signs:
Vital Signs
Temp Pulse Resp BP Pulse Ox
98.4 F 85 18 132/75 98
08/06/24 08:08 08/06/24 08:08 08/06/24 08:08 08/06/24 08:08 08/06/24 08:19
I&O
08/05/24 08/06/24 08/07/24
06:59 06:59 06:59
Intake Total 2580 / 2580
Balance 2580 / 2580
Review of Systems
-
History Source: Patient
All other systems: Reviewed and negative
Abdomen/GI: Reports Abdominal Pain
Physical Exam
-
General: No Apparent Distress
HEENT: Normocephalic
Respiratory: Clear to Auscultation
Cardiac: Regular Rhythm
GI: Soft, Nondistended and Tender (diffusely)
Musculoskeletal: No Clubbing, No Cyanosis and No Edema
Neuro: Awake, Alert, Oriented and AO x 3
Psych: Calm
--- NOTE | 2024-08-06 12:53 | W.PN.GI.CBS2 ---
Today's Communication / Plan
-
Keep on clears
Agree with MR-- I changed order from MRCP to MRI/MRCP
Advance diet as tomas
LFTs remain normal
Add on CRP, ESR
Assessment / Plan
-
Pt is a 64yo with hx prior pancreatitis, wt loss with use of Wegovy last 2 1/2 years, renal stones , prior appe, GERTRUDE, lap for endometriosis,cervical fusion, chronic back pain with onset of chest pain with radiation to back and shoulder with nausea
and vomiting. On admission she is noted with WBC 11,500 with glucose 173 and normal LFT's and lipase and normal troponin Pt did complete US with slightly contract GB no stone or duct dilatation. Limited pancreas. CT with IV contrast with mild
pancreatitis in pancreatic tail. Also noted sebaceous cysts, hepatic, and renal cysts along with diverticulosis. In recall with patient hx pancreatitis 6 years ago. She denies ETOH use and did not recall gallbladder issues with prior episode. She
was on increased NSAID's and tobacco use which she stopped after that admission with treatment at [facility]. She admits to some constipation but otherwise denies dysphagia, GERD, diarrhea, rectal bleeding or change in stool/urine color. She denies
any recent change in Wegovy dosing.
-chest pain on admission with nausea/vomiting
-CT with mild pancreatitis in pancreatic tail
-mild leukocytosis
-prior hx pancreatitis 6 years ago
-wt loss with use of Wegovey last 2 1/2 years
other med problems:
-GERTRUDE
-lap for endometriosis
-GERTRUDE
-renal stones
-hepatic/renal cyst on CT]
-diverticulosis
-cervical fusion/chronic back pain
-former tobacco use and current occasional marijuana use
Subjective
Subjective
Date of Service: August 06, 2024
still c/o n/v on clears. c/o epigastric pain/cp
Objective
Data Reviewed
Laboratory Data:
Laboratory Results
08/06/24 06:33
08/06/24 06:33
Laboratory Results
Magnesium 1.9 mg/dl (1.6-2.3) 08/05/24 04:22
Total Bilirubin 0.6 mg/dl (0.2-1.3) 08/06/24 06:33
AST 16 U/L (14-36) 08/06/24 06:33
ALT 11 U/L (0-35) 08/06/24 06:33
Alkaline Phosphatase 57 U/L (38-126) 08/06/24 06:33
Lipase 72 U/L (23-300) 08/05/24 04:22
Vital Signs and I&O:
Vital Signs
Temp Pulse Resp BP Pulse Ox
98.4 F 85 18 132/75 98
08/06/24 08:08 08/06/24 08:08 08/06/24 08:08 08/06/24 08:08 08/06/24 08:19
I&O
08/05/24 08/06/24 08/07/24
06:59 06:59 06:59
Intake Total 2580 / 2580
Balance 2580 / 2580
Physical Exam
Physical Exam
GI: Soft and Tender (epigastric)
[2024-08-06 14:37] LABS: Erythrocyte Sed Rate 13 mm/hour (0-20)
[2024-08-06 16:02] VITALS: BP 148/82
--- NOTE | 2024-08-06 16:27 | PTCARENOTE ---
pt AAO x3, GRUBER well, OOB in room/to BR; tomas well. VSS. On room air- pulse ox 98%, no SOB noted. Abd obese, soft, pt c/o upper abd discomfort; occ nausea/vomiting- small amts bile secretions. Good effect with prn IV Dilaudid and reglan. Voiding
in BR without difficulty. IVF's NSS @ 125 ml/hr infusing via Rt AC site without sx of infiltration. Resting quietly at present. Will continue to monitor.
--- NOTE | 2024-08-06 17:19 | CM ---
Alert awake oriented patient who lives with her Dennis who lives in a 2 story home with 10 steps to enter and bed bathroom on first floor. She is independent in driving and in all activities of daily living.Offered VN she declined.
No adaptive devices
Never had VN/SNF
Pharmacy [facility] [place]
PCP Dr Dwyer
PLAN Home no needs
[2024-08-06] MEDS: TYLENOL 650 MG PO (18:40)
[2024-08-06] MEDS: DESYREL 200 MG PO (22:17)
[2024-08-06 23:00] VITALS: BP 135/76
[2024-08-07] MEDS: NSS 1000 IV (02:25)
[2024-08-07] MEDS: REGLAN 10 MG IV ×3 (05:10→19:58)
[2024-08-07] MEDS: DILAUDID 0.5 MG IV ×3 (05:10→19:57)
[2024-08-07 06:50] LABS: ALT (SGPT) 11 U/L (0-35); AST (SGOT) 21 U/L (14-36); Albumin 3.3 g/dl (3.5-5.0); Alkaline Phosphatase 65 U/L (38-126); Blood Urea Nitrogen 8 mg/dl (7-17); Calcium 8.4 mg/dl (8.4-10.2); Carbon Dioxide 13 mmol/L (22-30); Chloride 109 mmol/L (98-107); Estimated Creatinine Clearance 93 ml/min; Glucose 34 mg/dl (70-99); Lipase 42 U/L (23-300); Potassium 3.6 mmol/L (3.5-5.1); Sodium 138 mmol/L (135-145); Total Bilirubin 0.6 mg/dl (0.2-1.3); Total Protein 5.5 g/dl (6.3-8.2); eGFR > 60.00
[2024-08-07 07:17] LABS: Glucose - Point of Care 48 mg/dl (70-99)
[2024-08-07 07:50] LABS: Glucose - Point of Care 51 mg/dl (70-99)
[2024-08-07 07:57] VITALS: BP 116/71
[2024-08-07] MEDS: D5/0.9% SODIUM CHLORIDE 1000 IV ×2 (08:15→21:46)
[2024-08-07] MEDS: DEXTROSE 50% SYRINGE IV (08:26)
[2024-08-07] MEDS: DEXTROSE 50% SYRINGE 12.5 GRAMS IV (08:46)
[2024-08-07 09:12] LABS: Glucose - Point of Care 178 mg/dl (70-99)
[2024-08-07] MEDS: ROCEPHIN 1000 MG IV (09:50)
[2024-08-07] MEDS: PROTONIX IV 40 MG IV ×2 (09:50→19:58)
[2024-08-07] MEDS: STERILE WATER FOR INJECTION 10 ML IV (09:50)
[2024-08-07] MEDS: NSS (PRESERVATIVE FREE) 10 ML IV ×2 (09:50→19:58)
[2024-08-07] MEDS: CRESTOR 10 MG PO (09:50)
--- NOTE | 2024-08-07 10:32 | W.PN.HOSP.TC ---
Today's Communication/Plan
-
Slightly improved as no more vomiting
D5 IVF
cont pain mgmt
follow BMP
check lactate
Assessment / Plan
Assessment / Plan
64yo M with PMHx of pancreatitis came with few days of epigastric pain and later vomiting, found signs of mild acute pancreatitis. Patient has a pain similar to her previous pancreatitis flare, however rather atypical radiating to substernal area.
Lipase is normal
A/P:
#Acute pancreatitis
#Hepatic cysts
thought to be 2/2 Wygovyromy er patient without dose change for past 2 years
Hold Wygovy
IVF
Advance diet as tolerated
Reglan (Zofran was not helpful)
No gallstones on US
triglycerides 73
No hypercalcemia seen
GI consult: IVF and advance diet as tolerated, MRCP if no improvement - will order
Start PPI since pain epigastric
MRI abd without biliary pathology, pancreatic inflammation seen
Defer w/u for alternative causes of pancreatitis to GI
#Hypoglycemia
2/2 poor oral intake and pancreatitis
fingerstick and D5 IVF
dextrose 50% PRN
chekc HGbA1c
#HAGMA
follow BMP
check lactate
#Non-cardiac chest pain - referred pain from pancreatitis
No ST elevation on EKG
trops WNL
Echo: EF 65% without valvular dysfunction
#Insomnia
cont home meds
#Diverticulosis without diverticulitis
high fiber diet
#DJD
tylenol
#L renal cyst
#mid-back sebaceous cyst
##Intraosseous hemangiomas
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
No follow up advised
DVT ppx lovenox
Full code
I have spent at least 58min reviewing chart, test results, communication with consultants and direct paitient care
Anticipated Discharge: > 48 hours
Subjective/Interval History
-
Date of Service: August 07, 2024
Objective Data
-
Labs:
Laboratory Results
08/07/24
05:01
Sodium 138
Potassium 3.6
Chloride 109 H
Carbon Dioxide 13 L*
BUN 8
Creatinine 0.6
Glucose 34 L*
Calcium 8.4
Total Bilirubin 0.6
AST 21
ALT 11
Alkaline Phosphatase 65
Vital Signs:
Vital Signs
Temp Pulse Resp BP Pulse Ox
98.6 F 93 18 116/71 94
08/07/24 07:57 08/07/24 07:57 08/07/24 07:57 08/07/24 07:57 08/07/24 07:57
I&O
08/06/24 08/07/24 08/08/24
06:59 06:59 06:59
Intake Total 2580 / 2580 3680 / 3680
Output Total 150 / 150
Balance 2580 / 2580 3530 / 3530
Review of Systems
-
History Source: Patient
All other systems: Reviewed and negative
Abdomen/GI: Reports Abdominal Pain and Nausea
Physical Exam
-
General: Appears in Distress
Respiratory: Clear to Auscultation
Cardiac: Regular Rhythm
GI: Soft, Nondistended and Tender; Negative Normal Bowel Sounds
Musculoskeletal: No Clubbing, No Cyanosis and No Edema
Neuro: Awake, Alert, Oriented and AO x 3
Psych: Calm
[2024-08-07 11:13] LABS: Lactic Acid 0.8 mmol/L (0.7-2.0)
[2024-08-07 11:14] LABS: Blood Urea Nitrogen 6 mg/dl (7-17); Calcium 8.3 mg/dl (8.4-10.2); Carbon Dioxide 18 mmol/L (22-30); Chloride 107 mmol/L (98-107); Estimated Creatinine Clearance 93 ml/min; Glucose 181 mg/dl (70-99); Potassium 3.4 mmol/L (3.5-5.1); Sodium 137 mmol/L (135-145); eGFR > 60.00
[2024-08-07] MEDS: KCL 270 MEQ IV (12:05)
[2024-08-07 12:31] LABS: Glucose - Point of Care 163 mg/dl (70-99)
[2024-08-07 15:50] VITALS: BP 120/76
[2024-08-07 16:47] LABS: Glucose - Point of Care 106 mg/dl (70-99)
--- NOTE | 2024-08-07 17:44 | W.PN.GI.CBS2 ---
Today's Communication / Plan
-
trial of full liquid diet if tolerates advance to low fat tmwr
Assessment / Plan
-
Pt is a 64yo with hx prior pancreatitis, wt loss with use of Wegovy last 2 1/2 years, renal stones , prior appe, GERTRUDE, lap for endometriosis, cervical fusion, chronic back pain with onset of chest pain with radiation to back and shoulder with nausea
and vomiting. On admission she is noted with WBC 11,500 with glucose 173 and normal LFT's and lipase and normal troponin Pt did complete US with slightly contract GB no stone or duct dilatation. Limited pancreas. CT with IV contrast with mild
pancreatitis in pancreatic tail. Also noted sebaceous cysts, hepatic, and renal cysts along with diverticulosis. In recall with patient hx pancreatitis 6 years ago. She denies ETOH use and did not recall gallbladder issues with prior episode. She
was on increased NSAID's and tobacco use which she stopped after that admission with treatment at [facility]. She admits to some constipation but otherwise denies dysphagia, GERD, diarrhea, rectal bleeding or change in stool/urine color. She denies
any recent change in Wegovy dosing.
MRI done yesterday also showed pancreatitis.
Pain, imaging c/w pancreatitis. Could be from Wegovy.
However, would not explain prior episode.
Lipids checked normal.
I ordered IgG4.
Recommend appt with Dr. Vicente outpatient to see if she would benefit from EUS.
Recommend holding Wegovy.
Will advance diet to full liquids.
If tolerates can advance to low fat in AM.
Subjective
Subjective
Date of Service: August 07, 2024
Last vomiting this am feeling better as is pain
Objective
Data Reviewed
Laboratory Data:
Laboratory Results
08/06/24 06:33
08/07/24 10:42
Laboratory Results
Magnesium 1.9 mg/dl (1.6-2.3) 08/05/24 04:22
Total Bilirubin 0.6 mg/dl (0.2-1.3) 08/07/24 05:01
AST 21 U/L (14-36) 08/07/24 05:01
ALT 11 U/L (0-35) 08/07/24 05:01
Alkaline Phosphatase 65 U/L (38-126) 08/07/24 05:01
Lipase 42 U/L (23-300) 08/07/24 05:01
Vital Signs and I&O:
Vital Signs
Temp Pulse Resp BP Pulse Ox
98.2 F 79 16 120/76 96
08/07/24 15:50 08/07/24 15:50 08/07/24 15:50 08/07/24 15:50 08/07/24 15:50
I&O
08/06/24 08/07/24 08/08/24
06:59 06:59 06:59
Intake Total 2580 / 2580 3680 / 3680
Output Total 150 / 150
Balance 2580 / 2580 3530 / 3530
Physical Exam
Physical Exam
HEENT: Anicteric
Cardiology: Normal Sinus Rhythm
GI: Non Distended and Non Tender
[2024-08-07 21:35] LABS: Glucose - Point of Care 106 mg/dl (70-99)
[2024-08-07] MEDS: DESYREL 200 MG PO (21:47)
[2024-08-07 23:39] VITALS: BP 131/77
[2024-08-08] MEDS: TYLENOL 650 MG PO ×2 (02:12→21:53)
[2024-08-08] MEDS: REGLAN 10 MG IV (05:45)
[2024-08-08] MEDS: DILAUDID 0.5 MG IV (05:45)
[2024-08-08 07:04] VITALS: BP 140/84
[2024-08-08 07:53] LABS: Glucose - Point of Care 90 mg/dl (70-99)
--- NOTE | 2024-08-08 08:17 | W.PN.GI.CBS2 ---
Addendum entered and electronically signed by Laurita Pena MD 08/08/24 15:14:
I saw and examined the patient.
The WATER RECLAMATION SYSTEMS OPERATOR or PA's note was reviewed and I agree with the note.
Comment: 64-year-old female past medical history of pancreatitis, weight loss on Wegovy presenting with recurrent pancreatitis. Possibly due to Wegovy although this does not explain the prior episode. I would recommend holding the Wegovy. Patient
tolerating low-fat diet. Anticipate discharge in the morning. I set her up for an appointment with Dr. Vicente to discuss possible endoscopic ultrasound. Of note, her sister also had pancreatitis and she may have a genetic etiology. GI will sign
off. Please call with any questions or issues. Thank you.
Original Note:
Today's Communication / Plan
-
Continued improvement, will advance diet to low fat.
Assessment / Plan
-
Pt is a 64yo with hx prior pancreatitis, wt loss with use of Wegovy last 2 1/2 years, renal stones , prior appe, GERTRUDE, lap for endometriosis, cervical fusion, chronic back pain with onset of chest pain with radiation to back and shoulder with nausea
and vomiting. On admission she is noted with WBC 11,500 with glucose 173 and normal LFT's and lipase and normal troponin Pt did complete US with slightly contract GB no stone or duct dilatation. Limited pancreas. CT with IV contrast with mild
pancreatitis in pancreatic tail. Also noted sebaceous cysts, hepatic, and renal cysts along with diverticulosis. In recall with patient hx pancreatitis 6 years ago. She denies ETOH use and did not recall gallbladder issues with prior episode. She
was on increased NSAID's and tobacco use which she stopped after that admission with treatment at [facility]. She admits to some constipation but otherwise denies dysphagia, GERD, diarrhea, rectal bleeding or change in stool/urine color. She denies
any recent change in Wegovy dosing.
MRI done yesterday also showed pancreatitis.
Pain, imaging c/w pancreatitis. Could be from Wegovy.
However, would not explain prior episode.
Lipids checked normal.
IgG4 ordered.
Recommend appt with Dr. Vicente outpatient to see if she would benefit from EUS.
Recommend holding Wegovy.
Will advance diet to low fat as she continues to improve.
Subjective
Subjective
Date of Service: August 08, 2024
Feeling much better. Pain significantly improved. Slight nausea. No vomiting.
No fever, chills. Tolerated diet well and feeling hungry.
Objective
Data Reviewed
Laboratory Data:
Laboratory Results
Magnesium 1.9 mg/dl (1.6-2.3) 08/05/24 04:22
Total Bilirubin 0.6 mg/dl (0.2-1.3) 08/07/24 05:01
AST 21 U/L (14-36) 08/07/24 05:01
ALT 11 U/L (0-35) 08/07/24 05:01
Alkaline Phosphatase 65 U/L (38-126) 08/07/24 05:01
Lipase 42 U/L (23-300) 08/07/24 05:01
Vital Signs and I&O:
Vital Signs
Temp Pulse Resp BP Pulse Ox
98.3 F 77 18 140/84 97
08/08/24 07:04 08/08/24 07:04 08/08/24 07:04 08/08/24 07:04 08/08/24 07:04
I&O
08/07/24 08/08/24 08/09/24
06:59 06:59 06:59
Intake Total 3680 / 3680 1080 / 1080
Output Total 150 / 150
Balance 3530 / 3530 1080 / 1080
Physical Exam
Physical Exam
HEENT: Anicteric
Cardiology: Normal Sinus Rhythm
Pulmonary: Clear
GI: Soft, Non Distended, Non Tender and Normal Bowel Sounds
[2024-08-08] MEDS: NSS (PRESERVATIVE FREE) 10 ML IV ×2 (08:56→19:28)
[2024-08-08] MEDS: CRESTOR 10 MG PO (08:56)
[2024-08-08] MEDS: PROTONIX IV 40 MG IV ×2 (08:56→19:28)
[2024-08-08 08:59] LABS: % Basophils 0.5 % (0-2); % Eosinophils 5.1 % (0-6); % Immature Granulocytes 0.2 % (0-0.5); % Lymphocytes 38.3 % (20.5-51.1); % Monocytes 10.3 % (1.7-9.3); % Neutrophils 45.6 % (42.2-75.2); Absolute Eosinophils 0.3 10^3/uL (0-0.7); Absolute Lymphocytes 2.2 10^3/uL (1.2-3.4); Absolute Monocytes 0.6 10^3/uL (0.1-0.6); Absolute Neutrophils 2.7 10^3/uL (1.4-6.5); Hematocrit 34.2 % (37.0-47.0); Hemoglobin 12.2 g/dL (12.0-16.0); Mean Corp Hgb Conc. 35.7 g/dL (33.0-37.0); Mean Platelet Volume 8.5 fL (7.4-10.4); Nucleated Red Blood Cells % 0 %; Platelet Count 296 10^3/uL (130-400); Red Blood Cell Count 4.07 10^6/uL (4.20-5.40); Red Cell Dist. Width 12.4 % (11.5-14.5); White Blood Cell Count 5.9 10^3/uL (4.8-10.8)
[2024-08-08 09:26] LABS: ALT (SGPT) 13 U/L (0-35); AST (SGOT) 22 U/L (14-36); Albumin 3.7 g/dl (3.5-5.0); Alkaline Phosphatase 65 U/L (38-126); Blood Urea Nitrogen < 2 mg/dl (7-17); Calcium 8.8 mg/dl (8.4-10.2); Carbon Dioxide 25 mmol/L (22-30); Chloride 104 mmol/L (98-107); Estimated Creatinine Clearance 93 ml/min; Glucose 75 mg/dl (70-99); Magnesium 1.8 mg/dl (1.6-2.3); Potassium 3.7 mmol/L (3.5-5.1); Sodium 140 mmol/L (135-145); Total Bilirubin 0.8 mg/dl (0.2-1.3); Total Protein 6.1 g/dl (6.3-8.2); eGFR > 60.00
--- NOTE | 2024-08-08 10:27 | W.PN.HOSP.TC ---
Today's Communication/Plan
-
Advance diet as patient is improving
Assessment / Plan
Assessment / Plan
64yo M with PMHx of pancreatitis came with few days of epigastric pain and later vomiting, found signs of mild acute pancreatitis. Patient has a pain similar to her previous pancreatitis flare, however rather atypical radiating to substernal area.
Lipase is normal
A/P:
#Acute pancreatitis
#Hepatic cysts
thought to be 2/2 romy Gimenez er patient without dose change for past 2 years
Hold Wygovy
IVF
Advance diet as tolerated
Reglan (Zofran was not helpful)
No gallstones on US
triglycerides 73
No hypercalcemia seen
GI consult: IVF and advance diet as tolerated, MRCP if no improvement - will order
Start PPI since pain epigastric
MRI abd without biliary pathology, pancreatic inflammation seen
Defer w/u for alternative causes of pancreatitis to GI
#Hypoglycemia
2/2 poor oral intake and pancreatitis
fingerstick and D5 IVF
dextrose 50% PRN
chekc HGbA1c
#HAGMA
follow BMP
check lactate
#Non-cardiac chest pain - referred pain from pancreatitis
No ST elevation on EKG
trops WNL
Echo: EF 65% without valvular dysfunction
#Insomnia
cont home meds
#Diverticulosis without diverticulitis
high fiber diet
#DJD
tylenol
#L renal cyst
#mid-back sebaceous cyst
##Intraosseous hemangiomas
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
No follow up advised
DVT ppx lovenox
Full code
I have spent at least 58min reviewing chart, test results, communication with consultants and direct paitient care
Anticipated Discharge: Within 24 hours
Subjective/Interval History
-
Date of Service: August 08, 2024
Objective Data
-
Labs:
Laboratory Results
08/08/24
06:45
WBC 5.9
Hgb 12.2
Hct 34.2 L
Plt Count 296
Sodium 140
Potassium 3.7
Chloride 104
Carbon Dioxide 25
BUN < 2 L
Creatinine 0.5 L
Glucose 75
Calcium 8.8
Total Bilirubin 0.8
AST 22
ALT 13
Alkaline Phosphatase 65
Vital Signs:
Vital Signs
Temp Pulse Resp BP Pulse Ox
98.3 F 77 18 140/84 97
08/08/24 07:04 08/08/24 07:04 08/08/24 07:04 08/08/24 07:04 08/08/24 07:04
I&O
08/07/24 08/08/24 08/09/24
06:59 06:59 06:59
Intake Total 3680 / 3680 1080 / 1080
Output Total 150 / 150
Balance 3530 / 3530 1080 / 1080
Review of Systems
-
History Source: Patient
All other systems: Reviewed and negative
Physical Exam
-
General: No Apparent Distress
HEENT: Normocephalic
Cardiac: Regular Rhythm
GI: Soft, Nondistended and Tender
Musculoskeletal: No Clubbing, No Cyanosis and No Edema
Neuro: Awake, Alert, Oriented and AO x 3
Psych: Calm
[2024-08-08] MEDS: ROCEPHIN 1000 MG IV (11:07)
[2024-08-08] MEDS: STERILE WATER FOR INJECTION 10 ML IV (11:07)
[2024-08-08 12:17] LABS: Glucose - Point of Care 110 mg/dl (70-99)
--- NOTE | 2024-08-08 12:29 | PTCARENOTE ---
Pt tolerated a low fat diet for breakfast without any nausea/vomiting. Pt continues to rate epigastric pain as a 3/10- no change in pain with eating. Will continue to monitor.
[2024-08-08 15:30] VITALS: BP 140/83
--- NOTE | 2024-08-08 16:33 | CM ---
Spoke with pt in room .
She said she is tolerating her low fat diet .
She said she may be dc tomorrow.
Offered VN she [id number] need.
IMM given signed on chart.
Her Shoaib will drive her home.
PLAn Home no needs
[2024-08-08 16:54] LABS: Glucose - Point of Care 148 mg/dl (70-99)
--- NOTE | 2024-08-08 17:59 | PTCARENOTE ---
Pt refusing to have IVF this evening and through the night. Pt tolerating low fat diet/drinking fluids without any difficulty.
[2024-08-08 21:26] LABS: Glucose - Point of Care 99 mg/dl (70-99)
[2024-08-08] MEDS: DESYREL 200 MG PO (21:51)
[2024-08-08 23:57] VITALS: BP 139/71
[2024-08-09] MEDS: TYLENOL 650 MG PO (03:56)
[2024-08-09 07:05] VITALS: BP 126/74
[2024-08-09 07:12] LABS: Glucose - Point of Care 86 mg/dl (70-99)
[2024-08-09] MEDS: NSS (PRESERVATIVE FREE) 10 ML IV (08:54)
[2024-08-09] MEDS: PROTONIX IV 40 MG IV (08:54)
[2024-08-09] MEDS: CRESTOR 10 MG PO (08:54)
[2024-08-09] MEDS: ROCEPHIN 1000 MG IV (09:44)
[2024-08-09] MEDS: STERILE WATER FOR INJECTION 10 ML IV (09:44)
--- NOTE | 2024-08-09 10:36 | W.PN.HOSP.TC ---
Today's Communication/Plan
-
dc
Assessment / Plan
Assessment / Plan
64yo M with PMHx of pancreatitis came with few days of epigastric pain and later vomiting, found signs of mild acute pancreatitis. Patient has a pain similar to her previous pancreatitis flare, however rather atypical radiating to substernal area.
Lipase is normal. MRI proved uncomplicated pancreatitis. GI will follow on IGG4 level as outpatient and consider EUS. Eventually able to eat without nausea, vomiting. Abd pain resolved. Medically stable for d/c and advised to stop Wygovy
A/P:
#Acute pancreatitis
#Hepatic cysts
thought to be 2/2 Wygovy, however patient without dose change for past 2 years
Hold Wygovy
IVF
Advance diet as tolerated
Reglan (Zofran was not helpful)
No gallstones on US
triglycerides 73
No hypercalcemia seen
GI consult: IVF and advance diet as tolerated, MRCP if no improvement - will order
Start PPI since pain epigastric
MRI abd without biliary pathology, pancreatic inflammation seen
Defer w/u for alternative causes of pancreatitis to GI
#Hypoglycemia
2/2 poor oral intake and pancreatitis
fingerstick and D5 IVF
dextrose 50% PRN
chekc HGbA1c
#HAGMA
follow BMP
check lactate
#Non-cardiac chest pain - referred pain from pancreatitis
No ST elevation on EKG
trops WNL
Echo: EF 65% without valvular dysfunction
#Insomnia
cont home meds
#Diverticulosis without diverticulitis
high fiber diet
#DJD
tylenol
#L renal cyst
#mid-back sebaceous cyst
##Intraosseous hemangiomas
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
No follow up advised
DVT ppx lovenox
Full code
I have spent at least 38min reviewing chart, test results, communication with consultants and direct paitient care
Anticipated Discharge: Today
Subjective/Interval History
-
Date of Service: August 09, 2024
Objective Data
-
Vital Signs:
Vital Signs
Temp Pulse Resp BP Pulse Ox
98 F 85 16 126/74 95
08/09/24 07:05 08/09/24 07:05 08/09/24 07:05 08/09/24 07:05 08/09/24 07:05
I&O
08/08/24 08/09/24 08/10/24
06:59 06:59 06:59
Intake Total 1080 / 1080 1695 / 1695
Balance 1080 / 1080 1695 / 1695
Review of Systems
-
History Source: Patient
All other systems: Reviewed and negative
Physical Exam
-
General: No Apparent Distress
HEENT: Normocephalic
Respiratory: Clear to Auscultation
Cardiac: Regular Rhythm
GI: Soft, Nontender, Nondistended and Normal Bowel Sounds
Neuro: Awake, Alert, Oriented and AO x 3
Psych: Calm
--- NOTE | 2024-08-09 10:43 | W.DCSUMMARY ---
Discharge Summary
Discharge Data
Date of Admission: 08/04/24
Date of Discharge: 08/09/24
-
Pending Results: Yes
Additional Pending Results:
IGG4
Hospital Course
64yo M with PMHx of pancreatitis came with few days of epigastric pain and later vomiting, found signs of mild acute pancreatitis. Patient has a pain similar to her previous pancreatitis flare, however rather atypical radiating to substernal area.
Lipase is normal. MRI proved uncomplicated pancreatitis. GI will follow on IGG4 level as outpatient and consider EUS. Eventually able to eat without nausea, vomiting. Abd pain resolved. UA ruled out with neg Ucx, completed 3 days of Rocephin
Medically stable for d/c and advised to stop Wygovy.
I have spent at least 38min reviewing chart, test results, communication with consultants and direct paitient care
Patient was managed for:
#Acute pancreatitis
#Hepatic cysts
#Hypoglycemia 2/2 poor oral intake
#HAGMA
#Non-cardiac chest pain - referred pain from pancreatitis
#Insomnia
#Diverticulosis without diverticulitis
#DJD
#L renal cyst
#mid-back sebaceous cyst
##Intraosseous hemangiomas
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
Discharge Plan
-
Patient Disposition: Home (Routine Discharge)
Discharge Diagnosis/Procedures: pancreatitis
Diet: Low Fat
Activity: As tolerated
Driving Restrictions: As prior to admission
Referrals:
Jason Andres MD [Active] - (follow up with recent mild pancreatitis. Consider MRI/MRCP after improved in 6-8 weeks. Call [phone] to schedule. )
Timothy Vicente MD [Active] - 10/06/24 11:45 am (Please call to reschedule if you can not keep this appointment. If your insurance requires a referral please contact your primary care physician prior to your appointment. )
Ayana Dwyer CRNP [Family Provider] -
Prescriptions:
New
pantoprazole 40 mg tablet,delayed release (DR/EC)
40 mg PO DAILY Qty: 30 0RF
Continued
trazodone 100 MG tablet
200 mg PO HS
polyethylene glycol 3350 [Miralax] 17 gram Powder In Packet
17 g PO DAILYPRN PRN (Reason: constipation)
ondansetron 4 mg Tablet,Disintegrating
4 mg PO Q8HPRN PRN (Reason: nausea)
Medical Marijuana
1 gummy PO HS
rosuvastatin 10 mg Tablet
10 mg PO DAILY
Discontinued
Wegovy 2.4 mg/0.75 mL Pen Injector
2.4 mg SC MO
Discharge Orders:
Discharge Patient (As Directed); Ordered 08/09/24
Ordered By: Mendez Palmer
Discharge Date and Time
Print Language: FAROESE
[2024-08-09 11:00] VITALS: BP 121/73
[2024-08-09 17:58] LABS: IgG Subclass 1 360 mg/dL (240-1118); IgG Subclass 2 200 mg/dL (124-549); IgG Subclass 3 49 mg/dL (21-134); IgG Subclass 4 54 mg/dL (1-123)
== END 2024-08-09 11:35 | disposition home or self-care (01) | DRG 440 ==
LOC: 4 EAST ACU 22:11
PROVIDERS: Clinical Nurse Specialist Family Health; Internal Medicine Gastroenterology; Physician Assistant Medical; Registered Nurse; ADMITTING PHYSICIAN Internal Medicine; ATTENDING PHYSICIAN Internal Medicine; CONSULT PHYSICIAN Specialist; EMERGENCY PHYSICIAN Emergency Medicine; FAMILY PHYSICIAN Nurse Practitioner Adult Health
DX: K85.30 Drug induced acute pancreatitis without necrosis or infection (principal); Z87.891 Personal history of nicotine dependence; N20.0 Calculus of kidney; K76.89 Other specified diseases of liver; E11.649 Type 2 diabetes mellitus with hypoglycemia without coma
CPT/HCPCS: 71046; 74177; 74183; 76700; 80048; 80053; 80061; 81003; 81015; 82248; 82787; 82962; 83036; 83605; 83690; 83735; 84484; 85025; 85027; 85379; 85652; 86140; 87086; 93005; 93306; 96361; 96374; 96375; 99285; A9575; Q9967

== ENCOUNTER 2024-11-06 06:11 | Day surgery (SDC) | payer OTHER, SELFPAY ==
[2024-11-06 06:54] VITALS: BMI 25.7
[2024-11-06 06:56] VITALS: BMI 25.7
[2024-11-06 06:57] VITALS: BP 103/62
[2024-11-06 08:59] VITALS: BP 108/77
[2024-11-06 09:15] VITALS: BP 124/58
[2024-11-06 09:30] VITALS: BP 109/62
== END 2024-11-06 09:30 | disposition home or self-care (01) ==
LOC: SDS 06:11
PROVIDERS: ATTENDING PHYSICIAN Internal Medicine Gastroenterology
DX: K76.6 Portal hypertension (principal); K31.89 Other diseases of stomach and duodenum; K86.9 Disease of pancreas, unspecified; R93.5 Abnormal findings on diagnostic imaging of other abdominal regions, including retroperitoneum
CPT/HCPCS: 43237

== ENCOUNTER 2025-04-13 16:25 | Emergency (ER) | payer OTHER, SELFPAY ==
[2025-04-13 16:31] VITALS: BP 157/79
[2025-04-13 17:00] LABS: Urine Character Clear (Clear)
[2025-04-13 17:03] LABS: Hematocrit 39.2 % (37.0-47.0); Hemoglobin 13.3 g/dL (12.0-16.0); Mean Corp Hgb Conc. 33.9 g/dL (33.0-37.0); Mean Corpuscular Volume 88.3 fL (81.0-99.0); Nucleated Red Blood Cells % 0 %; Platelet Count 300 10^3/uL (130-400); Red Cell Dist. Width 12.3 % (11.5-14.5)
[2025-04-13 17:16] LABS: Urine White Cell 0-2 /HPF (0-5)
[2025-04-13 17:38] LABS: ALT (SGPT) 22 U/L (0-35); AST (SGOT) 22 U/L (14-36); Albumin 4.5 g/dl (3.5-5.0); Alkaline Phosphatase 81 U/L (38-126); Blood Urea Nitrogen 20 mg/dl (7-17); Calcium 10.2 mg/dl (8.4-10.2); Carbon Dioxide 24 mmol/L (22-30); Chloride 105 mmol/L (98-107); Glucose 113 mg/dl (70-99); Potassium 4.6 mmol/L (3.5-5.1); Sodium 136 mmol/L (135-145); Total Protein 7.3 g/dl (6.3-8.2); eGFR > 60.00
--- NOTE | 2025-04-13 20:42 | ED.GENMED ---
History of Present Illness
General
Chief Complaint: Flank Pain
Time Seen by Provider: 04/13/25 20:24
History of Present Illness
History of Present Illness:
See MDM
Past History
Past History
ED Past Medical History: Other (Kidney stones, migraines, Tingling legs and arms. Pancreatitis); Negative Asthma, HTN, Hypercholesterolemia or NIDDM
ED Past Surgical History: None, (X 3, ), Gynecological (Hysterectomy) and Orthopedic (Cervical fusion)
Social History
Tobacco: Former smoker
Alcohol: None
Personal:
Living: with family
Family History
Family History: Negative Diabetes, Hypertension, Early CAD, Asthma or Cancer
Phy Exam
Physical Exam
Physical Exam:
See MDM
Course
Orders/Labs/Results
Orders:
Orders
04/13/25 16:42
CT Abd/pelvis Wo Iv Cont Urgent
Comment:
Reason For Exam: left flank pain
04/13/25 16:49
Complete Blood Count/With Diff Urgent
Comprehensive Metabolic Panel Urgent
Urinalysis Reflex To Culture Urgent
Date Specimen was Collected: 04/13/25
Time Specimen was Collected: 16:35
Urine Microscopic Reflex Cult Urgent
04/13/25 20:40
Ketorolac [Toradol] 30 mg IV NOW STA
Morphine Sulfate 4 mg IV NOW STA
Ondansetron Injectable [Zofran] 4 mg IV NOW STA
Tamsulosin [Flomax] 0.4 mg PO NOW STA
04/13/25 20:58
Amoxicillin 875 mg/Clav 125 mg [Augmentin 875 mg/125 mg] 1 tablet PO NOW STA
Abnormal Lab Results
04/13/25
16:49
BUN 20 H mg/dl
(7-17)
Glucose 113 H mg/dl
(70-99)
Ur Occult Blood Reflex 1+ A
(Negative)
Urine RBC 3-6 A /HPF
(0-2)
Urine Bacteria (Reflex) Few A
(Negative)
04/13/25 16:49
04/13/25 16:49
Vital Signs
Initial and Last Documented VS:
Initial Vital Signs
Temp Pulse Resp BP Pulse Ox
97.3 F 91 20 157/79 96
04/13/25 16:31 04/13/25 16:31 04/13/25 16:31 04/13/25 16:31 04/13/25 16:31
Last Documented Vital Signs
Temp Pulse Resp BP Pulse Ox
97.3 F 68 16 146/76 98
04/13/25 16:31 04/13/25 20:52 04/13/25 20:52 04/13/25 20:52 04/13/25 20:52
MDM/Problems Addressed
Differential Diagnosis Includes:
Note:
CHIEF COMPLAINT(S)
Flank pain, potentially related to kidney stones.
HISTORY OF PRESENT ILLNESS
The patient is a 64-year-old female with a history of kidney stones, who presented with severe left flank pain. The current episode began approximately one week ago, with the patient initially attributing the discomfort to back pain. The intensity
of the pain escalated, culminating in a decision to seek medical intervention due to its unrelenting nature. She described the pain as significant enough to impact her usual activities. She also reported associated nausea.
Upon examination, there was no tenderness upon light palpation of the abdomen. A CT scan suggests a kidney stone, which is pending radiologist confirmation. The current working diagnosis is consistent with obstruction and associated hydronephrosis,
as explained to the patient regarding the swelling of the ureter.
EXTERNAL RECORDS REVIEWED
Review of recent CT scan suggests the presence of a kidney stone.
CHRONIC MEDICAL CONDITIONS SIGNIFICANTLY AFFECTING CARE
Known history of recurrent kidney stones.
REVIEW OF SYSTEMS
- Gastrointestinal: Nausea associated with pain.
- Genitourinary: Right flank pain, with known history of kidney stones.
PHYSICAL EXAM
General: Uncomfortable and pacing around the room
Skin: Warm, dry.
Head: Normocephalic, atraumatic
Neck: Appears supple, trachea midline.
Eyes, Ears, Nose, Mouth, and Throat: Oral mucosa moist.
Cardiovascular: No signs of cyanosis
Respiratory: Respirations are non-labored.
Abdomen: Non-distended
Back: Mild left CVA tenderness
Musculoskeletal: No deformities
Neurological: No focal neurological deficit observed.
Psychiatric: Cooperative, appropriate mood and affect.
PROBLEM LIST
Acute Problems:
- Right flank pain secondary to kidney stones
- Associated nausea
CHRONIC PROBLEMS
- History of recurrent kidney stones
PLAN
1. Initiate pain management with IV ketorolac (Toradol) and IV morphine.
2. Administer IV antiemetic for nausea.
3. Arrange for further observation to determine if hospital admission is necessary, contingent on the presence of infection, fever, or uncontrolled symptoms.
4. Await radiologist confirmation of CT scan findings to confirm diagnosis and guide further management.
DIFFERENTIAL DIAGNOSIS
The Differential Diagnosis includes, in no particular order and is not limited to:
1. Nephrolithiasis with hydronephrosis
2. Pyelonephritis
3. Ureteral obstruction
4. Musculoskeletal back pain
5. Appendicitis
6. Bowel obstruction
7. Diverticulitis
8. Abdominal aortic aneurysm
9. Herpes zoster
10. Renal infarction
CARE-UPDATE
04/13/25 - 20:57
Reviewed the radiology report indicating no obstructing renal calculus. Noteworthy concern for diverticulosis. Initiating Augmentin for suspected diverticulitis due to current pain. Recent GI follow-up noted.
SUMMARY OF ENCOUNTER
The patient, a 64-year-old female with a history of recurrent kidney stones, presented to the emergency department with severe right flank pain. A CT scan initially suggested a kidney stone, pending confirmation from a radiologist. However, further
evaluation raised concern for diverticulosis,
leading to the initiation of treatment for suspected diverticulitis with Augmentin (amoxicillin/clavulanate). The patients white blood cell count was normal, and she did not have a fever. Her symptoms improved following pain management.
PLAN
Initiate Augmentin for suspected diverticulitis due to current pain. Continue monitoring for any signs of infection or uncontrolled symptoms.
PATIENT EDUCATION AND COUNSELING
The patient was educated on the signs and symptoms of diverticulitis and instructed to monitor for any worsening of symptoms. Return precautions were discussed in detail.
FOLLOW-UP INSTRUCTIONS
The patient was advised to follow up with both her primary care physician and inspector of dredging for further evaluation and management.
MEDICATION RECONCILIATION
Augmentin (amoxicillin/clavulanate) was prescribed for suspected diverticulitis.
MEDICAL DECISION MAKING
-Complexity of Data Reviewed: Chronic conditions affecting care include recurrent kidney stones. The differential diagnosis considered includes nephrolithiasis with hydronephrosis, pyelonephritis, ureteral obstruction, musculoskeletal back pain,
appendicitis, bowel obstruction, diverticulitis, abdominal aortic aneurysm, herpes zoster, and renal infarction.
-Data:
Category 1
Non-emergency department records reviewed: I reviewed the patients recent CT scan and outpatient notes.
Category 2
The following test interpretations were discussed with the patient: My independent interpretation of CT imaging suggests diverticulosis, warranting treatment for suspected diverticulitis.
Category 3
Discussion of management occurred with the inspector of dredging regarding the patients care and follow-up needs.
DIAGNOSIS
Diverticulitis (ICD-10-CM: K57.32)
*Pulse Oximetry
SaO2: 96
Oxygen Mode of Delivery: Room air
Patient hypoxic: no
*Critical Care Note
Total Time (30-74mins, 75-104mins- exclusive of procedures): Not Applicable
ED Attending Note
-
Portions of this chart may have been created with voice recognition software.� Occasional wrong word or��sound alike� substitutions may have occurred due to the inherent limitations of voice recognition software.
Discharge Plan
Departure
Patient Disposition: Home (Routine Discharge)
Date of Disposition: 04/13/25
Time of Disposition: 20:58
Patient with high blood pressure during this ER visit?: Yes
Discharge Problem:
Diverticulitis
Instructions: Diverticulitis
Prescriptions:
New
amoxicillin-pot clavulanate 875-125 mg tablet
1 tab PO BID Qty: 14 0RF
oxycodone 5 mg tablet
5 mg PO Q8H PRN (Reason: Pain) Qty: 10 0RF
No Action
trazodone 100 MG tablet
200 mg PO HS
ondansetron 4 mg Tablet,Disintegrating
4 mg PO Q8HPRN PRN (Reason: nausea)
Medical Marijuana
1 gummy PO HS
pantoprazole 40 mg tablet,delayed release (DR/EC)
40 mg PO DAILY Qty: 30 0RF
cyclobenzaprine [Flexeril] 10 mg Tablet
10 mg PO HS PRN (Reason: sleep)
Activity Restrictions/Additional Instructions:
Please return for any worsening symptoms.
You may return at any time if you have further concerns.
Please follow up with your doctor at the first available appointment, preferably this week.
You were given a prescription for narcotics. If you require this pain medicine, please take a daily [id number] stool softener to avoid constipation.
Thank you for choosing [facility].
Interventions
Interventions:
*Risk Screen - Suicide Last Done: 04/13/25 16:31
*General Assessment Last Done: 04/13/25 16:31
*Neglect/Abuse Screening Last Done: 04/13/25 16:31
Discharge Date and Time
Print Language: SYRIAN
[2025-04-13 20:52] VITALS: BP 146/76
[2025-04-13] MEDS: ZOFRAN 4 MG IV (20:53)
[2025-04-13] MEDS: MORPHINE SULFATE 4 MG IV (20:55)
[2025-04-13] MEDS: TORADOL 30 MG IV (20:56)
[2025-04-13] MEDS: AUGMENTIN 875 MG/125 MG 1 TABLET PO (21:15)
[2025-04-13] MEDS: ROXICODONE 5 MG PO (21:25)
== END 2025-04-13 21:30 | disposition home or self-care (01) ==
LOC: EMR 16:25
PROVIDERS: EMERGENCY PHYSICIAN Student in an Organized Health Care Education/Training Program; FAMILY PHYSICIAN Nurse Practitioner Adult Health
DX: K57.92 Diverticulitis of intestine, part unspecified, without perforation or abscess without bleeding (principal); G43.909 Migraine, unspecified, not intractable, without status migrainosus; Z87.891 Personal history of nicotine dependence
CPT/HCPCS: 99284; 96374; 96375 ×2; 74176; 80053; 81003; 81015; 85025